=== PATIENT | female | born 1970 | race Caucasian/White ===

== ENCOUNTER 2016-09-23 10:05 | Outpatient (CLI) | payer OTHER ==
[2016-01-27 18:44] VITALS: BP 125/51
--- NOTE | 2016-09-23 16:36 | Diagnostic Imaging Report ---
[facility] [address] [facility].[address] [address] Report Submission Date: Sep 23, 2016 3:39:59 PM BLANKET CUTTING MACHINE OPERATOR Patient Study Name: JEFFREY CHILDRESS Date: Sep 23, 2016 10:17:51 AM BLANKET CUTTING MACHINE OPERATOR Modality Type: CR Gender: F Description: UPPER EXTREMITY : 66 Institution: [facility] Physician: BRIAN XIAO - JENN Bilateral elbow multiple views Clinical history: Injury the bilateral elbow during fall There is a nondisplaced cortical fracture of the neck of the left radius , bony fragments are in good position. No significant effusion. Normal right elbow Impression: Normal right elbow Nondisplaced cortical fracture of the neck of the left radius Electronically signed on Sep 23, 2016 3:39:59 PM BLANKET CUTTING MACHINE OPERATOR by: Brian HOLLY
--- NOTE | 2016-09-23 16:37 | Diagnostic Imaging Report ---
[facility] [address] [facility].[address] [address] Report Submission Date: Sep 23, 2016 3:41:28 PM CANDY DECORATOR Patient Study Name: JEFFREY CHILDRESS Date: Sep 23, 2016 10:23:20 AM CANDY DECORATOR Modality Type: CR Gender: F Description: UPPER EXTREMITY : 66 Institution: [facility] Physician: BRIAN XIAO - JENN Left forearm 2 views Clinical history: Injury the left forearm during fall Nondisplaced cortical fracture of the neck of the left radius , otherwise normal left forearm . Impression: Nondisplaced cortical fracture of the neck of the left radius , otherwise normal left forearm Electronically signed on Sep 23, 2016 3:41:28 PM CANDY DECORATOR by: Brian HOLLY
== END 2016-09-23 10:06 ==
LOC: RAD 10:05
PROVIDERS: ATTEND Family Medicine
DX: S59.902A Unspecified injury of left elbow, initial encounter (principal); S59.901D Unspecified injury of right elbow, subsequent encounter; X58.XXXA Exposure to other specified factors, initial encounter
CPT/HCPCS: 73090

== ENCOUNTER 2016-10-28 08:58 | Outpatient (CLI) | payer OTHER ==
[2016-01-27 18:44] VITALS: BP 125/51
--- NOTE | 2016-10-28 14:26 | Diagnostic Imaging Report ---
[facility] [address] [facility].[address] [address] Report Submission Date: Oct 28, 2016 9:46:46 AM CDT Patient Study Name: JEFFREY CHILDRESS Date: Oct 28, 2016 9:15:52 AM CDT Modality Type: CR Gender: F Description: UPPER EXTREMITY : 66 Institution: [facility] Physician DEBORAH XIAO - JENN Left elbow - two views CLINICAL HISTORY: Follow-up fracture. FINDINGS: Examination left elbow in AP and lateral views with comparison to examination of 09/23/2016 demonstrates a healing fracture in the radial neck. There is minimal callus formation. There is no evidence of acute fracture or joint effusion. IMPRESSION: Healing radial neck fracture. Electronically signed on Oct 28, 2016 9:46:46 AM CDT by: Je HOLLY
== END 2016-10-28 09:00 ==
LOC: RAD 08:58
PROVIDERS: ATTEND Family Medicine
DX: S52.182D Other fracture of upper end of left radius, subsequent encounter for closed fracture with routine healing (principal); X58.XXXD Exposure to other specified factors, subsequent encounter; Y93.9 Activity, unspecified; Y99.9 Unspecified external cause status
CPT/HCPCS: 73070

== ENCOUNTER 2016-12-27 11:15 | Outpatient (CLI) | payer OTHER ==
[2016-01-27 18:44] VITALS: BP 125/51
[2016-12-27 11:39] LABS: BASOPHILS % 0.6 (0.0-1.5); EOSINOPHILS % 2.3 % (0.0-6.8); MEAN CORPUSCULAR HEMOGLOBIN 29.1 pg (28.0-34.0); MEAN CORPUSCULAR VOLUME 88.4 fl (80.0-100.0); MONOCYTES % 3.2 % (0.0-11.0)
[2016-12-27 12:06] LABS: eGFR (African) > 60; eGFR (Non-African) > 60
[2016-12-28 04:31] LABS: THYROGLOBULIN <0.5 ng/mL (1.6-60.0)
== END 2016-12-27 11:16 ==
LOC: LAB 11:15
PROVIDERS: ATTEND Internal Medicine Hematology & Oncology
DX: C73 Malignant neoplasm of thyroid gland (principal); M32.9 Systemic lupus erythematosus, unspecified; E89.0 Postprocedural hypothyroidism; M25.50 Pain in unspecified joint; D51.3 Other dietary vitamin B12 deficiency anemia
CPT/HCPCS: 36415; 80053; 84432; 84439; 84443; 84481; 85025

== ENCOUNTER 2017-05-12 07:14 | Outpatient (CLI) | payer OTHER ==
[2016-01-27 18:44] VITALS: BP 125/51
[2017-05-12 07:40] LABS: BASOPHILS % 0.7 (0.0-1.5); EOSINOPHILS % 1.7 % (0.0-6.8); MEAN CORPUSCULAR HEMOGLOBIN 28.5 pg (28.0-34.0); MEAN CORPUSCULAR VOLUME 86.8 fl (80.0-100.0); MONOCYTES % 3.8 % (0.0-11.0); NEUTROPHILS # 2.2 # k/uL (1.4-7.7)
[2017-05-12 08:08] LABS: eGFR (African) > 60; eGFR (Non-African) > 60
[2017-05-12 20:01] LABS: T3-UPTAKE 32.4 % (25.4-41.2)
[2017-05-13 01:01] LABS: THYROGLOBULIN <0.5 ng/mL (1.6-60.0)
== END 2017-05-12 07:15 ==
LOC: LAB 07:14
PROVIDERS: ATTEND Family Medicine
DX: C73 Malignant neoplasm of thyroid gland (principal); E89.0 Postprocedural hypothyroidism; M35.3 Polymyalgia rheumatica; M81.0 Age-related osteoporosis without current pathological fracture; D50.0 Iron deficiency anemia secondary to blood loss (chronic)
CPT/HCPCS: 36415; 80053; 80061; 83036; 84432; 84436; 84443; 84479; 85025

== ENCOUNTER 2017-06-06 07:04 | Outpatient (CLI) | payer OTHER ==
[2016-01-27 18:44] VITALS: BP 125/51
[2017-06-06 08:24] LABS: eGFR (African) > 60; eGFR (Non-African) > 60
[2017-06-11 14:10] LABS: T3 REVERSE 12.9 ng/dL (9.2-24.1)
== END 2017-06-06 07:06 ==
LOC: LAB 07:04
PROVIDERS: ATTEND Pediatrics Pediatric Allergy/Immunology
DX: E03.9 Hypothyroidism, unspecified (principal); R74.8 Abnormal levels of other serum enzymes; M35.00 Sjogren syndrome, unspecified
CPT/HCPCS: 36415; 80053; 82306; 84075; 84080; 84439; 84443; 84481; 84482; 85651; 86038; 86225; 86235

== ENCOUNTER 2017-07-09 13:53 | Outpatient (CLI) | payer OTHER ==
[2016-01-27 18:44] VITALS: BP 125/51
[2017-07-09 14:14] LABS: BASOPHILS % 0.7 (0.0-1.5); EOSINOPHILS % 2.9 % (0.0-6.8); MEAN CORPUSCULAR HEMOGLOBIN 28.9 pg (28.0-34.0); MEAN CORPUSCULAR VOLUME 88.7 fl (80.0-100.0); MONOCYTES % 4.2 % (0.0-11.0)
--- NOTE | 2017-07-09 15:00 | Diagnostic Imaging Report ---
TEODORA CERRATO [facility] [address] [facility] [address] [address] Report Submission Date: Jul 09, 2017 2:41:44 PM DECISION ANALYST Patient Study Name: JEFFREY CHILDRESS Date: Jul 09, 2017 2:21:12 PM DECISION ANALYST Modality Type: CR Gender: F Description: CHEST : 66 Institution: [facility] Physician: TEODORA CERRATO Examination: PA and lateral chest. History: Evaluate lung torres. Comparison exam: None provided. Findings: PA lateral chest demonstrate a normal cardiac and mediastinal silhouette. No focal infiltrate. No blunting of the costophrenic margins. Osseous structures are appropriate for age. Impression: No acute pulmonary process. Electronically signed on Jul 09, 2017 2:41:44 PM DECISION ANALYST by: Rayo HOLLY
== END 2017-07-09 14:05 ==
LOC: LAB 13:53
PROVIDERS: ATTEND Physician Assistant
DX: R05 Cough (principal)
CPT/HCPCS: 36415; 71020; 85025

== ENCOUNTER 2017-07-10 13:56 | Outpatient (CLI) | payer OTHER ==
[2016-01-27 18:44] VITALS: BP 125/51
== END 2017-07-10 14:49 ==
LOC: LAB 13:56
PROVIDERS: ATTEND Physician Assistant
DX: M35.00 Sjogren syndrome, unspecified (principal); R53.83 Other fatigue
CPT/HCPCS: 36415; 85651

== ENCOUNTER 2017-07-11 11:21 | Outpatient (CLI) | payer OTHER ==
[2016-01-27 18:44] VITALS: BP 125/51
--- NOTE | 2017-07-11 15:22 | Diagnostic Imaging Report ---
FELICIA TAYLOR [facility] [address] [facility] [address] Report Submission Date: Jul 11, 2017 12:19:27 PM DRY CLEANER PRESSER Patient Study Name: JEFFREY CHILDRESS Date: Jul 11, 2017 11:42:19 AM DRY CLEANER PRESSER Modality Type: CR Gender: F Description: SINUS : 66 Institution: [facility] Physician: FELICIA TAYLOR Examination: Plain film sinus History: Congestion Comparison exams: None available Findings: 4 views of the sinuses does not demonstrate opacification or air fluid level within the maxillary sinuses. Remaining visualized sinuses are without irregularity. No osseous abnormality. Impression: No sinus opacification or air fluid level. Consider obtaining CT sinus to further evaluate. Electronically signed on Jul 11, 2017 12:19:27 PM DRY CLEANER PRESSER by: Rayo HOLLY
== END 2017-07-11 11:45 ==
LOC: RAD 11:21
PROVIDERS: ATTEND Pediatrics Pediatric Allergy/Immunology
DX: R05 Cough (principal); J34.89 Other specified disorders of nose and nasal sinuses
CPT/HCPCS: 70220

== ENCOUNTER 2017-07-15 16:01 | Outpatient (CLI) | payer OTHER ==
[2016-01-27 18:44] VITALS: BP 125/51
[2017-07-15 16:51] LABS: BASOPHILS % 0.4 (0.0-1.5); MEAN CORPUSCULAR HEMOGLOBIN 29.2 pg (28.0-34.0); MEAN CORPUSCULAR VOLUME 87.7 fl (80.0-100.0); MONOCYTES % 4.4 % (0.0-11.0); NEUTROPHILS # 2.5 # k/uL (1.4-7.7)
== END 2017-07-15 16:02 ==
LOC: LAB 16:01
PROVIDERS: ATTEND Pediatrics Pediatric Allergy/Immunology
DX: D64.9 Anemia, unspecified (principal); M13.80 Other specified arthritis, unspecified site
CPT/HCPCS: 36415; 84550; 85025; 85651; 86038; 86200

== ENCOUNTER 2017-08-07 10:40 | Outpatient (CLI) | payer OTHER ==
[2016-01-27 18:44] VITALS: BP 125/51
[2017-08-07 11:06] LABS: BASOPHILS % 0.5 (0.0-1.5); EOSINOPHILS % 2.4 % (0.0-6.8); MEAN CORPUSCULAR HEMOGLOBIN 28.8 pg (28.0-34.0); MEAN CORPUSCULAR VOLUME 90.6 fl (80.0-100.0); MONOCYTES % 2.9 % (0.0-11.0); NEUTROPHILS # 2.3 # k/uL (1.4-7.7)
[2017-08-07 11:43] LABS: eGFR (African) > 60; eGFR (Non-African) > 60
[2017-08-08 09:01] LABS: THYROGLOBULIN <0.5 ng/mL (1.6-60.0)
== END 2017-08-07 10:42 ==
LOC: LAB 10:40
PROVIDERS: ATTEND Internal Medicine Hematology & Oncology
DX: C73 Malignant neoplasm of thyroid gland (principal); N95.1 Menopausal and female climacteric states; M32.9 Systemic lupus erythematosus, unspecified; M81.0 Age-related osteoporosis without current pathological fracture; G44.209 Tension-type headache, unspecified, not intractable
CPT/HCPCS: 36415; 80053; 82784; 82785; 83970; 84432; 84439; 84443; 84481; 84550; 85025; 85651; 86200; 86431

== ENCOUNTER 2017-09-09 10:31 | Outpatient (CLI) | payer OTHER ==
[2016-01-27 18:44] VITALS: BP 125/51
[2017-09-09 11:11] LABS: BASOPHILS % 0.5 (0.0-1.5); EOSINOPHILS % 2.1 % (0.0-6.8); MEAN CORPUSCULAR HEMOGLOBIN 28.9 pg (28.0-34.0); MEAN CORPUSCULAR VOLUME 90.8 fl (80.0-100.0)
== END 2017-09-09 10:32 ==
LOC: LAB 10:31
PROVIDERS: ATTEND Pediatrics Pediatric Allergy/Immunology
DX: E03.9 Hypothyroidism, unspecified (principal); M89.9 Disorder of bone, unspecified; R53.83 Other fatigue; C83.00 Small cell B-cell lymphoma, unspecified site
CPT/HCPCS: 36415; 84436; 84439; 84443; 84481; 85025; 85651

== ENCOUNTER 2017-12-15 11:22 | Outpatient (CLI) | payer OTHER ==
[2016-01-27 18:44] VITALS: BP 125/51
[2017-12-15 12:19] LABS: eGFR (African) > 60; eGFR (Non-African) > 60
[2017-12-15 12:23] LABS: BASOPHILS % 0.3 (0.0-1.5); EOSINOPHILS % 2.3 % (0.0-6.8); MEAN CORPUSCULAR HEMOGLOBIN 27.7 pg (28.0-34.0); MEAN CORPUSCULAR VOLUME 87.4 fl (80.0-100.0); MONOCYTES % 4.4 % (0.0-11.0)
--- NOTE | 2017-12-15 13:48 | Diagnostic Imaging Report ---
DEBORAH XIAO [facility] [address] [facility].[address] [address] Report Submission Date: December 15, 2017 11:56:18 AM CDT Patient Study Name: JEFFREY CHILDRESS Date: December 15, 2017 11:33:00 AM CDT Modality Type: DX Gender: F Description: UPPER EXTREMITY : 66 Institution: [facility] Physician: DEBORAH XIAO Examination: Plain film elbow History: PAIN HX OF PROXIMAL RADIAL HEAD FX X 1 YEAR AGO (Hx) Comparison exams: 23 September 2016, 28 October 2016 Findings: 2 views of the elbow demonstrates cortical angulation of the radial head. No acute fracture. No dislocation. No joint effusion Impression: Old radial head fracture. No acute appearing osseous abnormality. Electronically signed on December 15, 2017 11:56:18 AM CDT by: Rayo HOLLY
== END 2017-12-15 12:02 ==
LOC: RAD 11:22
PROVIDERS: ATTEND Family Medicine
DX: C73 Malignant neoplasm of thyroid gland (principal); E89.0 Postprocedural hypothyroidism; M32.9 Systemic lupus erythematosus, unspecified; M15.9 Polyosteoarthritis, unspecified; N95.1 Menopausal and female climacteric states; M25.522 Pain in left elbow
CPT/HCPCS: 36415; 73070; 80053; 82670; 84144; 84443; 84482; 85025

== ENCOUNTER 2018-01-09 08:23 | Outpatient (CLI) | payer OTHER ==
[2016-01-27 18:44] VITALS: BP 125/51
[2018-01-09 08:39] LABS: MEAN CORPUSCULAR HEMOGLOBIN 27.6 pg (28.0-34.0); MEAN CORPUSCULAR VOLUME 88.2 fl (80.0-100.0)
[2018-01-09 09:17] LABS: eGFR (Non-African) > 60
== END 2018-01-09 09:06 ==
LOC: LAB 08:23
PROVIDERS: ATTEND Pediatrics Pediatric Allergy/Immunology
DX: E03.9 Hypothyroidism, unspecified (principal); D64.9 Anemia, unspecified
CPT/HCPCS: 36415; 80053; 83036; 84439; 84443; 84481; 85027; 85651

== ENCOUNTER 2018-04-24 07:06 | Outpatient (CLI) | payer OTHER ==
[2016-01-27 18:44] VITALS: BP 125/51
== END 2018-04-24 07:08 ==
LOC: LAB 07:06
PROVIDERS: ATTEND Pediatrics Pediatric Allergy/Immunology
DX: E03.9 Hypothyroidism, unspecified (principal); E55.9 Vitamin D deficiency, unspecified; E11.9 Type 2 diabetes mellitus without complications
CPT/HCPCS: 36415; 82306; 83036; 84439; 84443; 84481

== ENCOUNTER 2018-05-22 16:33 | Outpatient (CLI) | payer OTHER ==
[2016-01-27 18:44] VITALS: BP 125/51
== END 2018-05-22 16:45 ==
LOC: LABRHC 16:33
PROVIDERS: ATTEND Physician Assistant
DX: J02.9 Acute pharyngitis, unspecified (principal)
CPT/HCPCS: 87070

== ENCOUNTER 2018-05-26 14:38 | Outpatient (CLI) | payer OTHER ==
[2016-01-27 18:44] VITALS: BP 125/51
== END 2018-05-26 14:40 ==
LOC: LABRHC 14:38
PROVIDERS: ATTEND Family Medicine
DX: J02.9 Acute pharyngitis, unspecified (principal)
CPT/HCPCS: 86663; 86664; 86665

== ENCOUNTER 2018-10-13 09:49 | Outpatient (CLI) | payer OTHER ==
[2016-01-27 18:44] VITALS: BP 125/51
[2018-10-13 10:34] LABS: eGFR (Non-African) > 60
[2018-10-13 12:03] LABS: MEAN CORPUSCULAR HEMOGLOBIN 27.6 pg (28.0-34.0); MONOCYTES % 4.2 % (0.0-11.0)
[2018-10-13 12:04] LABS: BASOPHILS % 0.6 (0.0-1.5); EOSINOPHILS % 2.3 % (0.0-6.8); NEUTROPHILS # 2.6 # k/uL (1.4-7.7)
== END 2018-10-13 10:00 ==
LOC: LAB 09:49
PROVIDERS: ATTEND Pediatrics Pediatric Allergy/Immunology
DX: E03.9 Hypothyroidism, unspecified (principal); E66.9 Obesity, unspecified; R73.9 Hyperglycemia, unspecified; Z68.35 Body mass index [BMI] 35.0-35.9, adult
CPT/HCPCS: 36415; 80053; 80061; 83036; 84439; 84443; 84481; 85025

== ENCOUNTER 2018-10-26 15:05 | Outpatient (CLI) | payer OTHER ==
[2016-01-27 18:44] VITALS: BP 125/51
== END 2018-10-26 15:07 ==
LOC: OUT 15:05
PROVIDERS: ATTEND Family Medicine
DX: E66.9 Obesity, unspecified (principal); Z68.41 Body mass index [BMI] 40.0-44.9, adult
CPT/HCPCS: 97802

== ENCOUNTER 2018-10-28 15:31 | Outpatient (CLI) | payer OTHER ==
[2016-01-27 18:44] VITALS: BP 125/51
== END 2018-10-28 15:33 ==
LOC: LAB 15:31
PROVIDERS: ATTEND Family Medicine
DX: Z91.018 Allergy to other foods (principal)
CPT/HCPCS: 36415; 82785; 86003

== ENCOUNTER 2019-02-15 08:10 | Outpatient (CLI) | payer OTHER ==
[2016-01-27 18:44] VITALS: BP 125/51
--- NOTE | 2019-02-15 10:11 | Diagnostic Imaging Report ---
MIRTHA MORALES [facility] [address] [facility].[address] [address] Report Submission Date: Feb 15, 2019 8:42:52 AM CDT Patient Study Name: JEFFREY CHILDRESS Date: Feb 15, 2019 8:10:25 AM CDT Modality Type: DX Gender: F Description: FOOT 3 VIEWS OR MORE : 66 Institution: [facility] Physician: MIRTHA MORALES Exam: Left foot. History: Pain. AP, lateral and oblique view of the left foot are submitted. No signs of acute fracture or dislocation is seen. No bony erosions are seen. No soft tissue abnormalities are identified. Impression: No acute fracture. Electronically signed on Feb 15, 2019 8:42:52 AM CDT by: Carlos HOLLY
== END 2019-02-15 08:12 ==
LOC: RAD 08:10
PROVIDERS: ATTEND Nurse Practitioner Family
DX: M79.672 Pain in left foot (principal)
CPT/HCPCS: 73630

== ENCOUNTER 2019-07-11 09:49 | Emergency (ER) | payer OTHER ==
--- NOTE | 2019-07-11 10:18 | ED Physician Documentation ---
General Adult - HISTORIAN Historian: patient - HPI Stated Complaint: headache, flank pain, dysuria Chief Complaint: General Adult Onset: days ago Timing: still present Severity: moderate Further Comments: yes (Pt is a 48 yo female with c/o headache, dysuria, L flank pain x 1 week.) - ROS CONST: other (malaise) EYES/ENT: none CVS/RESP: none GI/: nausea MS/SKIN/LYMPH: none NEURO/PSYCH: headache - PAST HX Past History: other (Anxiety/Depression, Fibromyalgia, Chronic pain, GERD, Migraine, Neuropathy, Thyroid d/o, Endometriosis, Sjogrens, PCOS, RLS, Metabolic Syndrome.) Surgeries/Procedures: cholecystectomy, hysterectomy, other (appendectomy, thyroid surgery, T&A) Allergies/Adverse Reactions: Allergies Allergy/AdvReac Type Severity Reaction Status Date / Time No Known Allergies Allergy Verified 07/11/19 10:06 - SOCIAL HX Smoking History: non-smoker - FAMILY HX Family History: No - VITAL SIGNS Vital Signs: Vital Signs Temp Pulse Resp BP Pulse Ox 125/51 01/27/16 18:42 - REVIEWED ASSESSMENTS Nursing Assessment Reviewed: Yes Vitals Reviewed: Yes Progress - Progress Progress: Rocephin 1 gm IV NS 1 L IVF Zofran 4 mg IV UTI/Pyelonephritis, Rx [place] (5/325). Take one or two every 4 to 6 hours as needed for moderate to severe pain. #15 Rx Bactrim DS. Take one every 12 hours for 10 days. Rx Zofran 4 mg ODT. Take one every 8 hours as needed for nausea/vomiting. General Adult Physical Exam - PHYSICAL EXAM GENERAL APPEARANCE: mild distress EENT: pharynx normal NECK: normal inspection, supple RESPIRATORY: no resp distress, chest non-tender, breath sounds normal CVS: reg rate & rhythm, heart sounds normal ABDOMEN: soft, no organomegaly, normal bowel sounds BACK: CVA tenderness (L) SKIN: warm/dry, normal color EXTREMITIES: non-tender, normal range of motion, no evidence of injury, no edema NEURO: oriented X3, motor nml, sensation nml Discharge Clincal Impression: UTI/pyelonephritis Referrals: Brian Ren MD [Primary Care Provider] - Condition: Stable Disposition: 01 HOME, SELF-CARE Decision to Admit: NO Decision Time: 12:09
[2019-07-11] MEDS ORDERED: 0.9 % SODIUM CHLORIDE 1,000 ML IV ONE ×2 (10:20→11:35)
[2019-07-11] MEDS ORDERED: KETOROLAC TROMETHAMINE 30 MG/1ML VIAL IV ONE (10:20)
[2019-07-11 10:21] VITALS: BP 140/86
[2019-07-11] MEDS ORDERED: ONDANSETRON HCL/PF 4 MG/ 2ML VIAL IVP ONE (10:21)
[2019-07-11 10:43] LABS: BASOPHILS % 0.4 % (0.0-1.5); NEUTROPHILS # 5.6 # k/uL (1.4-7.7)
[2019-07-11 10:54] LABS: eGFR (Non-African) > 60
[2019-07-11] MEDS ORDERED: cefTRIAXone SODIUM 1 GM in 0.9 % SODIUM CHLORIDE 50 ML IV ONE (10:55)
== END 2019-07-11 12:38 | disposition home or self-care (01) ==
LOC: ED 09:49
DX: N39.0 Urinary tract infection, site not specified (principal); N12 Tubulo-interstitial nephritis, not specified as acute or chronic
CPT/HCPCS: 80053; 85025; 87086; 96361; 96374; 96375; 99284; J0696; J1885; J2405; J7030; S1016

== ENCOUNTER 2019-08-09 08:14 | Outpatient (CLI) | payer OTHER ==
--- NOTE | 2019-08-09 13:46 | Diagnostic Imaging Report ---
PATIENT MR#: [id number] PATIENT PATIENT NAME: JEFFREY CHILDRESS DATE OF : 1970 REFERRING PHYSICIAN: Brian Ren EXAM DATE: 08/09/2019 ACCESSION NUMBER: [id number] EXAM DESCRIPTION: CT ABD PELVIS W/ CON CLINICAL HISTORY: Lower abdominal pain. TECHNIQUE: CT abdomen and pelvis following administration of IV contrast. 94 mL Omnipaque 350. COMPARISON: No pertinent prior studies are available at this time. CT ABDOMEN WITH CONTRAST: Lung bases: No lung base infiltrate or effusion. Liver: No intrahepatic ductal dilation. Gallbladder: Cholecystectomy. Pancreas: No pancreatic duct dilation. Bowel loops: Nondistended. Spleen: Normal size. Scattered calcified granulomas. Adrenals: Normal size. Kidneys: No hydronephrosis. Aorta: Normal caliber. Peritoneum: No free air. Anterior abdominal wall: Small fatty umbilical hernia. Lumbar spine: Degenerative spondylotic changes at L3-4 and L4-5. Minimal grade 1 anterolisthesis of L 4 over L5 due to facet arthrosis. CT PELVIS WITH CONTRAST: Colon: Nondistended. No acute inflammatory changes to suggest diverticulitis or colitis. Appendix: The appendix is not confidently identified, though there are no findings in the right lower quadrant to suggest an inflammatory process or appendicitis. Correlate with surgical history for appendectomy. Bladder: Normally distended. Pelvic organs: Hysterectomy. Peritoneum: No fluid. Skeleton: No acute findings. IMPRESSION: No acute abdominal findings to explain lower abdominal pain. Read by: Dr. Keegan Cooley Transcribed by: Keegan Cooley Transcribed Date: 08/09/2019 1:45:38 PM Electronically signed by: Dr. Keegan Cooley Date signed: 08/09/2019 1:45:38 PM
== END 2019-08-09 08:24 ==
LOC: RAD 08:14
PROVIDERS: ATTEND Family Medicine
DX: R10.30 Lower abdominal pain, unspecified (principal); J30.9 Allergic rhinitis, unspecified
CPT/HCPCS: 74177; Q9967